=== PATIENT | male | born 1965 | race African-American/Black ===

== ENCOUNTER 2023-01-08 04:10 | Day surgery (SDC) | payer OTHER ==
[2023-01-07 08:16] VITALS: BMI 27.8
[2023-01-08 08:25] VITALS: TEMP 97.9
[2023-01-08 08:56] VITALS: PULSE 54; RESP 18
[2023-01-08 09:14] VITALS: BP 139/84
== END 2023-01-08 09:00 | disposition home or self-care (01) ==
LOC: JASU-ENDO 04:10
PROVIDERS: ATTEND Internal Medicine Gastroenterology
PROC: 0DJD8ZZ Inspection of Lower Intestinal Tract, Via Natural or Artificial Opening Endoscopic (ICD-10-PCS; principal; 2023-01-08 08:00)
DX: Z12.11 Encounter for screening for malignant neoplasm of colon (principal)